=== PATIENT | male | born 1970 | race Caucasian/White ===

== ENCOUNTER → 2016-09-04 | Outpatient (REF) | payer BC ==
[2016-09-04 16:53] LABS: BASOPHILS % (AUTO) 1 % (0-2); EOSINOPHILS # (AUTO) 0.3 10^3uL; EOSINOPHILS % (AUTO) 4 % (0-4); LYMPHOCYTES # (AUTO) 3.3 X10^3; MEAN CORPUSCULAR HEMOGLOBIN 31.2 PG (26.0-34.0); MEAN CORPUSCULAR VOLUME 86 FL (80-100); MONOCYTES # (AUTO) 0.6 X10^3; MONOCYTES % (AUTO) 7 % (3-11); NEUTROPHILS % (AUTO) 48 % (51-67); PLATELET COUNT 203 10^3uL (150-450); WHITE BLOOD COUNT 8.24 10^3uL (4.0-11.0)
[2016-09-04 17:04] LABS: MEAN CORPUSCULAR HGB CONC 36.4 g/dL (31.0-37.0)
[2016-09-04 17:05] LABS: ALBUMIN 4.3 g/dL (3.4-5.0); TOTAL PROTEIN 7.3 g/dL (6.4-8.5)
== END ==
LOC: LAB 16:42
PROVIDERS: ATTEND Family Medicine
DX: E29.1 Testicular hypofunction (principal); R79.89 Other specified abnormal findings of blood chemistry; E78.4 Other hyperlipidemia; D75.1 Secondary polycythemia
CPT/HCPCS: 80076; 84403; 85025

== ENCOUNTER → 2016-09-24 | Outpatient (REF) | payer BC ==
[2016-09-24 10:47] LABS: BASOPHILS % (AUTO) 1 % (0-2); EOSINOPHILS # (AUTO) 0.2 10^3uL; EOSINOPHILS % (AUTO) 3 % (0-4); LYMPHOCYTES # (AUTO) 2.6 X10^3; MEAN CORPUSCULAR VOLUME 85 FL (80-100); MEAN PLATELET VOLUME 10.4 FL (6.0-9.5); MONOCYTES # (AUTO) 0.5 X10^3; MONOCYTES % (AUTO) 7 % (3-11); NEUTROPHILS # (AUTO) 4.2 X10^3; NEUTROPHILS % (AUTO) 55 % (51-67); PLATELET COUNT 212 10^3uL (150-450); WHITE BLOOD COUNT 7.53 10^3uL (4.0-11.0)
[2016-09-24 10:48] LABS: MEAN CORPUSCULAR HEMOGLOBIN 31.5 PG (26.0-34.0); MEAN CORPUSCULAR HGB CONC 36.9 g/dL (31.0-37.0)
[2016-09-24 10:53] LABS: ANION GAP 15.1 MEQ/L (3-15)
== END ==
LOC: LAB 10:34
PROVIDERS: ATTEND Physician Assistant Surgical
DX: Z01.818 Encounter for other preprocedural examination (principal); R55 Syncope and collapse; R00.1 Bradycardia, unspecified
CPT/HCPCS: 80048; 85025

== ENCOUNTER → 2016-11-16 | Outpatient (REF) | payer BC ==
[2016-11-16 16:08] LABS: BASOPHILS % (AUTO) 1 % (0-2); EOSINOPHILS # (AUTO) 0.3 10^3uL; EOSINOPHILS % (AUTO) 3 % (0-4); LYMPHOCYTES # (AUTO) 2.8 X10^3; MEAN CORPUSCULAR HEMOGLOBIN 31.3 PG (26.0-34.0); MEAN CORPUSCULAR VOLUME 86 FL (80-100); MONOCYTES # (AUTO) 0.8 X10^3; MONOCYTES % (AUTO) 8 % (3-11); NEUTROPHILS # (AUTO) 5.8 X10^3; NEUTROPHILS % (AUTO) 60 % (51-67); PLATELET COUNT 223 10^3uL (150-450)
[2016-11-16 16:18] LABS: MEAN CORPUSCULAR HGB CONC 36.2 g/dL (31.0-37.0)
[2016-11-16 16:50] LABS: ERYTHROCYTE SEDIMENTATION RT* 8 mm/hr (0-12)
== END ==
LOC: LAB 15:09
PROVIDERS: ATTEND Family Medicine
DX: L03.115 Cellulitis of right lower limb (principal)
CPT/HCPCS: 85025; 85652; 86140

== ENCOUNTER → 2016-11-23 | Outpatient (REF) | payer BC ==
[2016-11-23 12:40] LABS: BASOPHILS % (AUTO) 1 % (0-2); EOSINOPHILS # (AUTO) 0.2 10^3uL; EOSINOPHILS % (AUTO) 3 % (0-4); MEAN CORPUSCULAR HEMOGLOBIN 30.9 PG (26.0-34.0); MEAN CORPUSCULAR VOLUME 87 FL (80-100); MEAN PLATELET VOLUME 10.5 FL (6.0-9.5); MONOCYTES # (AUTO) 0.6 X10^3; MONOCYTES % (AUTO) 9 % (3-11); NEUTROPHILS # (AUTO) 3.4 X10^3; NEUTROPHILS % (AUTO) 46 % (51-67); PLATELET COUNT 224 10^3uL (150-450); WHITE BLOOD COUNT 7.36 10^3uL (4.0-11.0)
[2016-11-23 12:51] LABS: MEAN CORPUSCULAR HGB CONC 35.7 g/dL (31.0-37.0)
[2016-11-23 13:23] LABS: ERYTHROCYTE SEDIMENTATION RT* 6 mm/hr (0-12)
== END ==
LOC: LAB 11:50
PROVIDERS: ATTEND Family Medicine
DX: R79.89 Other specified abnormal findings of blood chemistry (principal); E78.4 Other hyperlipidemia
CPT/HCPCS: 84403; 85025; 85652; 86140

== ENCOUNTER → 2016-11-23 | Outpatient (CLI) | payer BC ==
--- NOTE | 2016-11-23 13:36 | Diagnostic Imaging Report ---
INDICATION: Right ankle pain and swelling, history of recent Achilles tendon repair. DISCUSSION: Three views of the right ankle were obtained, no comparison. There is mild circumferential soft tissue swelling noted. No acute fracture or dislocation. Ankle mortise is symmetric. No osseous destruction to suggest underlying osteomyelitis. No unexpected radiopaque foreign body. IMPRESSION: 1. Mild right ankle soft tissue swelling. Dictated by: Dictated on workstation # [id number]
== END ==
LOC: RAD 11:54
PROVIDERS: ATTEND Family Medicine
DX: L03.115 Cellulitis of right lower limb (principal)
CPT/HCPCS: 73610